=== PATIENT | female | born 1985 | race Caucasian/White ===

== ENCOUNTER 2020-06-02 10:01 | Outpatient (CLI) | payer MEDICARE, MEDICAID, SELFPAY ==
[2020-06-02 10:37] LABS: Basophils Absolute Auto 0.1 K/mm3 (0.0-0.1); Basophils Percent Auto 0.7 % (0.2-1.2); Eosinophils Absolute Auto 0.1 K/mm3 (0-0.3); Hemoglobin 14.2 g/dL (12.0-15.0); Immature Granulocyte Absolute 0.02 K/mm3 (0.00-0.031); Immature Granulocyte Percent A 0.2 % (0-0.5); Lymphocytes Absolute Auto 2.49 K/mm3 (0.9-3.2); Lymphocytes Percent Auto 28.3 % (18.3-44.2); Mean Corpuscular HGB Conc 32.3 g/dl (32-36); Mean Corpuscular Hemoglobin 27.9 pg (26-34); Mean Corpuscular Volume 86.4 fl (80-100); Mean Platelet Volume 10.7 fl (7.4-10.4); Monocytes Absolute Auto 0.7 K/mm3 (0.1-0.6); Monocytes Percent Auto 7.7 % (2.6-8.5); Neutrophils Absolute Auto 5.5 K/mm3 (1.3-6.7); Neutrophils Percent Auto 62.1 % (45.5-73.1); Platelet Count Result 274 k/mm3 (150-375); Red Blood Count 5.09 M/mm3 (4.2-5.4); Red Cell Distribution Width 12.1 % (11.5-14.5); White Blood Count 8.8 K/mm3 (4.5-10.0)
[2020-06-02 10:43] LABS: Alanine Aminotransferase 23 U/L (4-35); Albumin Level 4.6 g/dL (3.5-5.1); Alkaline Phosphatase 66 U/L (38-126); Anion Gap 9 mmol/L (8-16); Aspartate Amino Transferase 20 U/L (14-36); Bilirubin,Total 0.3 mg/dL (0.2-1.3); Blood Urea Nitrogen 13 mg/dL (7-17); Calcium 9.5 mg/dL (8.4-10.2); Carbon Dioxide 30 mmol/L (22-30); Chloride 101 mmol/L (98-107); Cholesterol 168 mg/dL (0-200); Estimated Glomerular Filt Rate > 60; Glucose 117 mg/dL (65-105); HDL Direct 44 mg/dL; Potassium 4.1 mmol/L (3.4-5.0); Sodium 140 mmol/L (137-145); Triglycerides 125 mg/dL (<150)
[2020-06-02 10:54] LABS: LDL Cholesterol Direct 92 mg/dL
== END 2020-06-02 10:02 | disposition home or self-care (01) ==
PROVIDERS: PCP Family Medicine; Visit Provider Family Medicine
DX: E03.9 Hypothyroidism, unspecified (principal); E11.9 Type 2 diabetes mellitus without complications; E78.2 Mixed hyperlipidemia; I10 Essential (primary) hypertension; R53.83 Other fatigue
CPT/HCPCS: 36415; 80053; 80061; 84443; 85025

== ENCOUNTER 2021-01-01 08:45 | Outpatient (CLI) | payer MEDICARE, SELFPAY ==
[2021-01-01 09:47] LABS: Alanine Aminotransferase 23 U/L (4-35); Albumin Level 4.5 g/dL (3.5-5.1); Alkaline Phosphatase 60 U/L (38-126); Anion Gap 5 mmol/L (8-16); Aspartate Amino Transferase 24 U/L (14-36); Bilirubin,Total 0.3 mg/dL (0.2-1.3); Blood Urea Nitrogen 17 mg/dL (7-17); Calcium 9.4 mg/dL (8.4-10.2); Carbon Dioxide 26 mmol/L (22-30); Chloride 106 mmol/L (98-107); Cholesterol 170 mg/dL (0-200); Estimated Glomerular Filt Rate > 60; Glucose 115 mg/dL (65-105); HDL Direct 53 mg/dL; Sodium 137 mmol/L (137-145); Triglycerides 107 mg/dL (<150)
[2021-01-01 09:58] LABS: LDL Cholesterol Direct 91 mg/dL
== END 2021-01-01 08:46 | disposition home or self-care (01) ==
LOC: ANHLAB 08:51
PROVIDERS: PCP Family Medicine; Visit Provider Family Medicine
DX: Z51.81 Encounter for therapeutic drug level monitoring (principal); Z79.899 Other long term (current) drug therapy; E03.9 Hypothyroidism, unspecified; E11.9 Type 2 diabetes mellitus without complications; E78.2 Mixed hyperlipidemia
CPT/HCPCS: 36415; 80053; 80061; 84443

== ENCOUNTER 2021-04-05 10:28 | Outpatient (CLI) | payer MEDICARE, SELFPAY ==
[2021-04-05 12:26] LABS: Creatinine Urine 121.7 mg/dL
[2021-04-05 12:32] LABS: MALB Creatinine Ratio 7.5 mg/g (0-30); Microalbumin Urine Random 9.1 mg/L (0-16.7)
== END 2021-04-05 10:29 | disposition home or self-care (01) ==
PROVIDERS: PCP Family Medicine; Referring Provider Internal Medicine Endocrinology, Diabetes & Metabolism; Visit Provider Family Medicine
DX: E11.65 Type 2 diabetes mellitus with hyperglycemia (principal)
CPT/HCPCS: 36415; 82043

== ENCOUNTER 2023-06-07 00:50 | Emergency (ER) | payer MEDICARE, MEDICAID, SELFPAY ==
[2023-06-07 00:56] VITALS: BP 131/89; PULSE 99; RESP 18; TEMP 37; O2SAT 99
--- NOTE | 2023-06-07 01:46 | ED.WOUNDLAC ---
HPI - Wound/Laceration General Chief Complaint: Wound/Laceration Stated Complaint: laceration to forehead after fall Time Seen by Provider: 06/07/23 01:12 Source: patient and family (Mother and father) Limitations: no limitations History of Present Illness HPI narrative: Patient is a 37-year-old female present to the emergency department complaining of a fall that occurred just prior to arrival. Patient was trying to crawl into her bed and slipped and fell hitting the right side of her head on the ground causing a cut to the right side of her head. Patient denies use of blood thinners, patient denies loss of consciousness. Patient denies neck pain, back pain, paresthesias, numbness, weakness, vision changes, sore throat, loose or chipped teeth, hearing changes. Patient denies any nausea or vomiting or recent illness. Patient notes her last tetanus shot is uncertain but thinks that it might be more than 10 years ago. Patient has a baseline wheelchair dependent. Patient denies any pain anywhere aside from a slight amount of discomfort over where she cut the right side of her head. Family put a gauze and headband over the wound and brought her in for further evaluation. Patient is at her baseline mentation. Related Data Home Medications Medication Instructions Recorded Confirmed dapagliflozin propanediol 10 mg 10 mg PO DAILY 12/25/20 12/18/22 tablet (Farxiga) aspirin 325 mg tablet 81 mg PO DAILY 12/18/22 12/18/22 Allergies Allergy/AdvReac Type Severity Reaction Status Date / Time No Known Allergies Allergy Verified 06/07/23 00:56 Review of Systems Review of Systems: A 10 system review of systems was completed on the patient and is negative except for what is stated in the HPI. Nursing and ancillary documentation was reviewed. [facility] Past Medical History Medical History Cerebral palsy Diabetes mellitus Encounter for immunization Essential hypertension Family History Family History Mother Hypertension Family history of elevated blood lipids Family history of diabetes mellitus in first degree relative Social History Social History Smoking status: Never smoker Second hand tobacco smoke exposure: No Alcohol intake: never Substance use: never Substance use type: does not use Lack of Transportation: No Lack of Food: Never True Current Housing: I Have Housing Concerned About Future Housing: No Difficulty Paying Gas/Electric Bills: No Difficulty Paying for Meds: No Currently Unemployed: No Education: Associate Degree Difficulty w/ Childcare or Family Care: No Living arrangements: with family Gender identity (if verbalized by the patient): Female Spiritual care concerns: No Agree to blood products: Yes Comments At time of signature, I have reviewed and agree with nursing past medical, surgical, social and family history unless otherwise noted. Please see the nursing chart for further information. There is no relevant family history pertinent to the presenting complaint. Exam Narrative: CONST: No acute distress. Well nourished. HENMT: Head is normocephalic. 2 cm linear laceration to the right frontoparietal region with scant oozing blood, depth is approximately 0.25 cm, no foreign bodies, no surrounding erythema, no palpable skull deformities, no galea involvement, no muscle involvement, no exposed fatty tissue, no necrotic tissue. Moist mucous membranes. No posterior oropharynx erythema. No hemotympanum. EYES: No conjunctival icterus, injection, or pallor. PERRL. Extraocular motions intact. NECK: No meningeal signs. No midline vertebral tenderness palpation or step-offs. RESP: Able to speak in full sentences. Normal respiratory effort. CTAB. CARDIO: Regular rate. Regular rhythm. 2+ DP and radial pulses
[2023-06-07] MEDS: TETANUS,DIPHTHERIA,AC PERTUSSIS ADULT (0.5 ML) BOOSTRIX IM (01:53)
[2023-06-07] MEDS: ACETAMINOPHEN 500 MG TABLET 1000 MG PO (02:06)
== END 2023-06-07 02:18 | disposition home or self-care (01) ==
PROVIDERS: Emergency Provider Student in an Organized Health Care Education/Training Program; PCP Family Medicine
DX: S01.01XA Laceration without foreign body of scalp, initial encounter (principal); E11.9 Type 2 diabetes mellitus without complications; I10 Essential (primary) hypertension; G80.9 Cerebral palsy, unspecified; Z23 Encounter for immunization; W06.XXXA Fall from bed, initial encounter
CPT/HCPCS: 12001; 90471; 90715; 99283; A9270

== ENCOUNTER 2024-03-19 09:28 | Outpatient (CLI) | payer MEDICARE, MEDICAID, SELFPAY ==
[2024-03-19 09:59] LABS: Basophils Absolute Auto 0.1 K/mm3 (0.0-0.1); Basophils Percent Auto 0.6 % (0.2-1.2); Eosinophils Absolute Auto 0.1 K/mm3 (0-0.3); Eosinophils Percent Auto 1.2 % (0-4.4); Hematocrit 45.5 % (37.0-47.0); Hemoglobin 14.4 g/dL (12.0-15.0); Immature Granulocyte Absolute 0.02 K/mm3 (0.00-0.031); Immature Granulocyte Percent A 0.2 % (0-0.5); Immature Platelet Fraction Pct 4.6 % (0.9-11.2); Lymphocytes Absolute Auto 2.27 K/mm3 (0.9-3.2); Lymphocytes Percent Auto 26.3 % (18.3-44.2); Mean Corpuscular HGB Conc 31.6 g/dl (32-36); Mean Corpuscular Hemoglobin 27.9 pg (26-34); Mean Corpuscular Volume 88.2 fl (80-100); Mean Platelet Volume 10.7 fl (7.4-10.4); Monocytes Absolute Auto 0.7 K/mm3 (0.1-0.6); Monocytes Percent Auto 7.5 % (2.6-8.5); Neutrophils Absolute Auto 5.5 K/mm3 (1.3-6.7); Neutrophils Percent Auto 64.2 % (45.5-73.1); Platelet Count Result 223 k/mm3 (150-375); Red Blood Count 5.16 M/mm3 (4.2-5.4); Red Cell Distribution Width 12.9 % (11.5-14.5); White Blood Count 8.6 K/mm3 (4.5-10.0)
[2024-03-19 10:16] LABS: Alanine Aminotransferase 34 U/L (6-35); Albumin Level 4.7 g/dL (3.5-5.1); Alkaline Phosphatase 83 U/L (38-126); Anion Gap 15 mmol/L (4-12); Aspartate Amino Transferase 29 U/L (14-36); Bilirubin,Total 0.5 mg/dL (0.2-1.3); Blood Urea Nitrogen 13 mg/dL (7-17); Calcium 9.5 mg/dL (8.4-10.2); Carbon Dioxide 21 mmol/L (22-30); Chloride 101 mmol/L (98-107); Cholesterol 162 mg/dL (0-200); Estimated Glomerular Filt Rate > 60; Glucose 134 mg/dL (65-110); HDL Direct 52 mg/dL; Potassium 3.9 mmol/L (3.4-5.0); Sodium 137 mmol/L (137-145); Triglycerides 119 mg/dL (<150)
[2024-03-19 10:27] LABS: LDL Cholesterol Direct 84 mg/dL
[2024-03-19 15:22] LABS: Free T4 Free Thyroxine Reflex 0.89 ng/dL (0.78-2.19)
[2024-03-19 19:48] LABS: Total Triiodothyronine (T3) 1.48 NG/ML (0.97-1.69)
== END 2024-03-19 09:29 | disposition home or self-care (01) ==
PROVIDERS: PCP Family Medicine; Visit Provider Family Medicine
DX: E11.9 Type 2 diabetes mellitus without complications (principal); E78.2 Mixed hyperlipidemia; R53.83 Other fatigue; I10 Essential (primary) hypertension
CPT/HCPCS: 36415; 80053; 80061; 84439; 84443; 84480; 85025; 85055

== ENCOUNTER 2024-08-09 12:30 | Outpatient (RCR) | payer MEDICARE, MEDICAID, SELFPAY ==
--- NOTE | 2024-05-24 16:37 | OPREHPOC ---
Outpatient Therapy Plan of Care This is a Multidisciplinary Plan of Care that may contain components documented by all disciplines (PT, OT, and ST.) PT Problem 1 PT Problem #1 Knowledge Deficit PT Goal 1 Goal / Goal Update *indep with HEP Target Visit 10 PT Problem 2 PT Problem #2 Impaired Strength PT Goal 1 Goal / Goal Update increase srength of hips and knees to improve gait and mobility skills: 1* pt perform 20 reps of supine SLR and hip abduction motions 2* in sitting: pt perform R and L knee extension to (-10') x 20 reps Target Visit 10 PT Problem 3 PT Problem #3 Impaired Gait PT Goal 1 Goal / Goal Update 1*pt ambulate with forearm crutch 100' with CGA for safety 2* pt step length pass other foot 3* pt hold trunk in neutral with walking/ no lateral motion Target Visit 10
--- NOTE | 2024-05-24 16:37 | PTOPEVAL1 ---
Assessment and note entered by Callie Olmos, PT Evaluation Information Assessment Status Evaluation Other ICD-10 Condition Codes ( cerebral palsy G 80.9 PT) Subjective Information have not had PT for over 10 years; Activity: use motorized w/c for mobility; live at home with parents; use cane and walk with parents 12'; no falls in the past 6 months; parents assist her with getting out of bed, walking to bathroom; showering does stretching exercises at home; Goal: get legs stronger Reported Pain Level Pain Score 0: Self Report Assessment PT Clinical Summary Karolina has the diagnosis of cerebral palsy. She lives at home with her parents, uses the motorized w/c for mobility and parents assist her with mobility and self care. She has bilateral AFO and R wrist immobilizer. She has not had any falls. At home, has been performing some stretching but not any strengthening exercises. With the evaluation: she has decreased strength of both legs, with decreased extension ROM of hips and knees; gait with the forearm crutch 55' with assist of one and poor gait pattern. Skilled PT services are indicated to increase bilateral hip and knee strength and flexibility, improve transfer and gait skills, with education for HEP and gait pattern/ balance. Plan of Care Interventions Gait Training,Manual Therapy,Neuro Re-education, Patient/Caregiver Education,Therapeutic Activities, Therapeutic Exercise PT Services Indicated Yes Treatment Frequency and 2x/wk for 10 visits Duration These treatments will address the objective and functional deficits as defined above. The patient will be advanced safely and appropriately in order for the patient to progress towards his/her prior level of function. Additional exercises will be introduced and as well as a comprehensive home exercise program upon discharge, if needed, ?to ensure carryover of functional gains achieved in the clinic. This treatment plan has been reviewed and agreement upon by the patient.
--- NOTE | 2024-06-24 11:52 | OTOPEVAL1 ---
Assessment and note entered by He Bower, BIBI/Isidro, CHT Evaluation Information Assessment Status Evaluation Diagnosis Cerebral palsy Subjective Information Patient dx CP. Right hand/upper extremity has decreased joint motion and strength. The patient verbalizes concerns about her right hand in particular. She has an off the shelf brace to try to hold her wrist and fingers straight, however it does not work as intended as it is just a wrist immobilizer. She is interested in a custom brace to hold her fingers in a more neutral position. At rest her wrist is in slight flexion and the finger PIP joints are hyperextended. She works on stretching these daily. Assessment OT Clinical Summary Patient referred to OT with dx of CP. She is interested in a custom hand orthosis for improved positioning of her wrist, hand, fingers, and thumb . Today she was measured for a custom Benik orthosis to support these structures. This type of orthosis was chosen over a thermoplastic orthosis we make in the clinic for comfort and she will be wearing this for years. Plan to have patient follow up once the splint gets shipped to the clinic for molding and fitting of the splint. Thank you for this referral. Plan of Care Interventions Therapeutic Exercise,Check Out for Orthotic/Pr OT Services Indicated Yes Treatment Frequency and 0-1x/week for 3 visits Duration These treatments will address the objective and functional deficits as defined above. The patient will be advanced safely and appropriately in order for the patient to progress towards his/her prior level of function. Additional exercises will be introduced and as well as a comprehensive home exercise program upon discharge, if needed, ?to ensure carryover of functional gains achieved in the clinic. This treatment plan has been reviewed and agreement upon by the patient.
--- NOTE | 2024-06-24 14:24 | OPREHPOC ---
Outpatient Therapy Plan of Care This is a Multidisciplinary Plan of Care that may contain components documented by all disciplines (PT, OT, and ST.) PT Problem 1 PT Problem #1 Knowledge Deficit PT Goal 1 Goal / Goal Update *indep with HEP Target Visit 10 Progress Met PT Goal 2 Goal / Goal Update 06-24-24 progress goal met continue to progress HEP and education Target Visit 18 PT Problem 2 PT Problem #2 Impaired Strength PT Goal 1 Goal / Goal Update increase srength of hips and knees to improve gait and mobility skills: 1* pt perform 20 reps of supine SLR and hip abduction motions 2* in sitting: pt perform R and L knee extension to (-10') x 20 reps Target Visit 10 Progress Partially Met PT Goal 2 Goal / Goal Update 06-24-24 progress goals partially met: #1 for R LE and #2 met for reps but not ROM NEW GOALS: 1* pt stand with one forearm crutch, trunk extension ~ 20' flexion x 2 minutes 2* supine R LE SLR x 20 reps 3* sitting R LE knee extension x 20 reps to (-30') 4* supine L LE SLR x 30 reps 5* sitting L knee extension x 20 reps to (-20') Target Visit 18 PT Problem 3 PT Problem #3 Impaired Gait PT Goal 1 Goal / Goal Update 1*pt ambulate with forearm crutch 100' with CGA for safety 2* pt step length pass other foot 3* pt hold trunk in neutral with walking/ no lateral motion Target Visit 10 Progress Not Met PT Goal 2 Goal / Goal Update 06-24-24 progress goals not met continue towards Target Visit 18 OT Problem 1 OT Problem #1 Knowledge Deficit OT Goal 1 Goal / Goal Update 1. Patient/caregiver to be indep. with don/doffing orthosis. Target Visit 3
--- NOTE | 2024-06-24 14:24 | PTOPPROG ---
Assessment and note entered by Callie Olmos, PT Progress Report Assessment Status Progress Other ICD-10 Condition Codes ( cerebral palsy G 80.9 PT) Subjective Information since coming for therapy- easier to get in/out bed dad still has to help her at home, due to higher mattress, compared to the mat here; at home have been walking with parents from room/room; Assessment PT Clinical Summary Karolina has received 10 PT sessions. Compared to the initial evaluation: increase in LE strength, transfer and gait skills. The goals were partially met. Education to pt and family for HEP and transfers. Continue PT services. Plan of Care Interventions Gait Training,Manual Therapy,Neuro Re-education, Patient/Caregiver Education,Therapeutic Activities, Therapeutic Exercise PT Services Indicated Yes Treatment Frequency and 2x/wk for 8 visits Duration These treatments will address the objective and functional deficits as defined above. The patient will be advanced safely and appropriately in order for the patient to progress towards his/her prior level of function. Additional exercises will be introduced and as well as a comprehensive home exercise program upon discharge, if needed, ?to ensure carryover of functional gains achieved in the clinic. This treatment plan has been reviewed and agreement upon by the patient.
--- NOTE | 2024-07-28 13:16 | PTOPDC ---
Assessment and note entered by Callie Olmos, PT DISCHARGE REPORT Assessment Status Discharge Other ICD-10 Condition Codes ( cerebral palsy G 80.9 PT) Subjective Information since coming for therapy, walking is better, legs and stomach are stronger; have been doing the exercises at home; Reported Pain Level Pain Score 0: Self Report Assessment PT Clinical Summary Karolina has received a total of 18 PT sessions. Compared to the last reevaluation: increased standing time- static with one forearm crutch for 2 minutes and 39 seconds, with trunk flexion ~ 20' and knee flexion ~ 30'; increase LE strength with supine and sitting LE exercises, due to tone, she has trunk motion to assist with LE movements; in sitting, she is able to maintain good sitting position, without UE support; gait distance improved from 75' to 100' with one forearm crutch, bilateral AFO and SBA for safety; education completed for HEP with pt and family. The goals were achieved, except gait with trunk neutral. Discharge PT services. She is to continue with HEP and walking as tolerated. Plan of Care PT Services Indicated No
--- NOTE | 2024-08-09 13:39 | OTOPPROG ---
Assessment and note entered by BIBI Fonseca/Isidro, IVYT OT Progress Update 08/09/24 Assessment Status Progress Diagnosis Cerebral palsy Subjective Information Patient presents today for Benik brace fitting. 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 Benik brace is covered in a soft neoprene. She and her father liked the fit, cascade of the fingers, etc. They are able to don and doff independently. Assessment OT Clinical Summary Patient referred to OT with dx of CP. She is interested in a custom hand orthosis for improved positioning of her wrist, hand, fingers, and thumb. Today she was fitted for a custom Benik resting hand splint that supports the wrist in neutral, the thumb in abduction, and the fingers in extension. Extra care was taken to limit PIP hyperextension, so the fingers have a slight bend at all the joints, but overall are supported in a comfortable extended position. She is able to doff the brace herself. Requires the assist to don, which her dad is independent. Plan to follow up in 1 month to assess need for any adjustments. Plan of Care Interventions Therapeutic Exercise,Check Out for Orthotic/ Prosthetic OT Services Indicated Yes Treatment Frequency and Follow up in 1 month Duration These treatments will address the objective and functional deficits as defined above. The patient will be advanced safely and appropriately in order for the patient to progress towards his/her prior level of function. Additional exercises will be introduced and as well as a comprehensive home exercise program upon discharge, if needed, ?to ensure carryover of functional gains achieved in the clinic. This treatment plan has been reviewed and agreement upon by the patient.
--- NOTE | 2024-08-23 14:28 | PCOTNOTE ---
This treatment is being continued on visit number [id number]. Please see documentation on both accounts to view progress. Completed interventions, outcomes, and problems have been marked as Inactive to facilitate the copying of the Care plan routine for recurring accounts.
== END 2024-08-22 23:59 | disposition home or self-care (01) ==
LOC: ANHOT 12:30
PROVIDERS: PCP Family Medicine; Visit Provider Family Medicine
DX: I89.0 Lymphedema, not elsewhere classified (principal); G80.9 Cerebral palsy, unspecified
CPT/HCPCS: 97110; 97112; 97116; 97140; 97162; 97165; 97530; 97763

== ENCOUNTER 2024-09-10 07:27 | Outpatient (RCR) | payer MEDICARE, MEDICAID, SELFPAY ==
--- NOTE | 2024-08-23 14:28 | PCOTNOTE ---
The treatment documented on this account is a continuation of the treatment documented on visit number [id number]. Please see documentation on both accounts to view progress. The Plan of Care has been transitioned and updated within the new V#. I have addressed and agree with the discipline specific Problems, Interventions, and Goals for the current certification period. Completed interventions, outcomes, and problems have been marked as Inactive to facilitate the copying of the Care plan routine for recurring accounts.
--- NOTE | 2024-09-10 13:18 | OTOPDC ---
Assessment and note entered by He Bower, OTR/L, CHT OT D/C Summary 09/10/24 Assessment Status Discharge Diagnosis Cerebral palsy Subjective Information Patient presents today for assessment of her Benik brace after a month of wearing. Her father present with her today. They report they like the fit and it's doing exactly what it's intended to do. They are having no issues with don/doffing or cleaning the brace. Assessment OT Clinical Summary Patient referred to OT with dx of CP. A custom resting hand splint was fitted to the patient a month ago and she returns today to reassess the fit. Made some adjustments to the brace and advised to not strap down so tightly. Reviewed ROM HEP. Plan to D/C today with patient and patient's dad independent with all materials. Plan of Care OT Services Indicated No
== END 2024-09-10 14:44 | disposition home or self-care (01) ==
LOC: ANHOT 07:27
PROVIDERS: PCP Family Medicine; Visit Provider Family Medicine
DX: I89.0 Lymphedema, not elsewhere classified (principal); G80.9 Cerebral palsy, unspecified
CPT/HCPCS: 97110; 97763

== ENCOUNTER 2024-09-30 07:46 | Outpatient (CLI) | payer MEDICARE, MEDICAID, SELFPAY ==
--- OUTSIDE RECORDS SUMMARY | 2024-09-30 07:48 | XMS_ITS | Referral Summary ---
Author Organization [facility] [address] [place] [id number] Care Team Providers Care Drafter Apprentice Name Role Phone Carina Avendano MD Primary Care Provider [phone] Carina Avendano MD Unavailable [phone] Allergies No known active allergies Medications hydroCHLOROthia zide (MICROZIDE) 12.5 mg capsule 10/27/2018 Act justus sertraline (ZOLOFT) 50 mg tablet Take 1 tablet (50 mg total) by mouth daily 03/25/2021 Active aspirin 325 mg tablet Take 1 tablet (325 mg total) by mouth daily Active dapaglifloz propaned-metfor min 10-1,000 mg tablet, IR & ER, biphasic 24hr Take 10-1,000 mg by mouth daily 90 tablet 3 11/11/2023 Active atorvastatin (LIPITOR) 10 mg tablet Take 1 tablet (10 mg total) by mouth daily 90 tablet 3 11/11/2023 Active OneTouch Verio test strips stripIndication s:Type 2 diabetes mellitus with hyperglycemia, without long-term current use of insulin (HCC) USE TO TEST GLUCOSE FOUR TIMES A DAY 300 strip 4 11/24/2023 Active metFORMIN XR (GLUCOPHAGE XR) 500 mg 24 hr tabletIndicatio ns:Type 2 diabetes mellitus with hyperglycemia, without long-term current use of insulin (HCC) TAKE 1 TABLET (500 MG TOTAL) BY MOUTH DAILY. 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 Difficulties spectacle wear non suitability contact lens wear. Optic disc pallor right eye; tilted optic discs both eyes. Possible ICL implantation candidate. Hypertension associated with diabetes 09/21/2020 Assessment & Plan (05/29/2023 1:46 PM CDT): Chronic, well-controlled Update microalbumin and GFR Assessment & Plan (10/29/2022 12:05 PM CDT): Chronic problem, controlled on current HCTZ 12.5mg daily. No changes at this time. Assessment & Plan (03/26/2022 1:31 PM CDT): Chronic, well controlled Continue current meds Check GFR, MA Assessment & Plan (03/27/2021 12:12 PM CDT): Adequately controlled Check microalbumin Assessment & Plan (09/21/2020 1:38 PM SCHOOL FUNDRAISING DIRECTOR): Goal blood pressure is less than 140/85 Low salt diet was discussed andd recommended The importance of daily aerobic exercise was also emphasized. Continue current meds, Check microalbumin Alternating exotropia with other noncomitancies 10/21/2019 Assessment & Plan (10/21/2019 10:54 AM CDT): Patient wanted to be seen since recently diagnosed with Diabetes. Discussed implant surgery with parent. 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 Continue statin therapy with atorvastatin 10 mg Assessment & Plan (11/11/2023 2:19 PM CDT): Chronic , stable Update LP Continue atorvastatin Assessment & Plan (05/29/2023 1:45 PM CDT): Chronic, well-controlled Continue atorvastatin Assessment & Plan (10/29/2022 12:11 PM CDT): Chronic problem, controlled on current Atorvastatin 10mg. Last lipid panel: 09/25/21 LDL=88, TG=87. Will update lipid panel today. Verified phone #/address to contact re: results. Assessment & Plan (03/26/2022 1:31 PM CDT): Chronic, well controlled Low fat Low cholesterol diet Exercise Continue statin therapy with Atorvastatin Assessment & Plan (09/25/2021 11:57 AM SCHOOL FUNDRAISING DIRECTOR): Goal of treatment , LDL cholesterol less than 100 ( less than 70 in patients with history of heart attacks and / or strokes ) NonHDL cholesterol ( total cholesterol minus HDL cholesterol ) goal less than 130 ( less than 100 in patients with history of heart attacks and / or strokes ) Low cholesterol, low fat diet was discussed and advised, as well as daily exercise Continue statin therapy with Atovastastin Check lipid profile Assessment & Plan (03/27/2021 12:12 PM CDT): Goal of treatment , LDL cholesterol less than 100 ( less than 70 in patients with history of heart attacks and / or strokes ) NonHDL cholesterol ( total cholesterol minus HDL cholesterol ) goal less than 130 ( less than 100 in patients with history of heart attacks and / or strokes ) Low cholesterol, low fat diet was discussed and advised. Daily exercise Continue statin therapy with with atorvastatin Assessment & Plan (09/21/2020 1:37 PM SCHOOL FUNDRAISING DIRECTOR): Goal of treatment , LDL cholesterol less than 100 ( less than 70 in patients with history of heart attacks and / or strokes ) NonHDL cholesterol ( total cholesterol minus HDL cholesterol ) goal less than 130 ( less than 100 in patients with history of heart attacks and / or strokes ) Low cholesterol, low fat diet was discussed and advised. Daily exercise On statin therapy with Lipitor Lipids checked today Assessment & Plan (02/24/2020 12:52 PM CDT): Goal of treatment , LDL cholesterol less than 100 ( less than 70 in patients with history of heart attacks and / or strokes ) NonHDL cholesterol ( total cholesterol minus HDL cholesterol ) goal less than 130 ( less than 100 in patients with history of heart attacks and / or strokes ) Low cholesterol, low fat diet was discussed and advised. Daily exercise On statin therapy with Lipitor Assessment & Plan (08/26/2019 12:05 PM SCHOOL FUNDRAISING DIRECTOR): Tolerating atorvastatin. Continue. Assessment & Plan (04/27/2019 2:40 PM CDT): Due to the high risk of of heart attacks and strokes in patients with diabetes, it is stronglyce recommended to aim for LDL-cholesterol ( bad cholesterol ) of less than 100 ( or less than 70 if you have a history of stroke or heart disease ) and a non HDL cholesterol of less than 130 . Since statin medications have shown to decrease the risk of heart disease and strokes in patients with diabetes , its use is strongly recommended. Start Lipitor 10 mg daily Type 2 diabetes mellitus wit h hyperglycemia, without long-term current use of insulin 12/31/2018 Assessment & Plan (05/21/2024 4:01 PM CDT): Chronic, stable. Continue current regimen including dapagliflozin/metformin Assessment & Plan (11/11/2023 2:17 PM CDT): Chronic, stable Diet and exercise Contine Duaneuo Assessment & Plan (05/29/2023 1:43 PM CDT): Hba1c was Lab Results Component Value Date HGBA1C 6.5 05/29/2023 today, indicating poor DM control Goal Hba1c and blood glucose explained Diet and exercise were advised Prevention and treatment of hyypoglcyemia were discussed with the patient Blood glucose monitoring : 1 day Adjustment to medications: Stop metformin and farxiga Start Xigduo 05/1000 mg once a day Assessment & Plan (10/29/2022 12:12 PM CDT): Chronic problem, well controlled on current regimen. No changes: Farxiga 10mg daily Metformin 500mg twice daily Has f/u DM eye appt 01/24/[address] Whitlock at [facility]. Assessment & Plan (03/26/2022 1:32 PM CDT): Hba1c was Lab Results Component Value Date HGBA1C 6.1 03/26/2022 today, indicating adequate DM control Goal Hba1c and blood glucose explained Diet and exercise were advised Prevention and treatment of hyypoglcyemia were discussed with the patient Blood glucose monitoring : 1-2 x day ( pt prefers to do it ) Adjustment to medications: continue curren t Assessment & Plan (09/25/2021 11:58 AM SCHOOL FUNDRAISING DIRECTOR): Hba1c was Lab Results Component Value Date HGBA1C 6.0 09/25/2021 today, indicating adequate DM control Goal Hba1c and blood glucose explained Diet and exercise were advised Prevention and treatment of hyypoglcyemia were discussed with the patient Blood glucose monitoring : 1 x day Adjustment to medications: Continue Farxiga and Metformin Assessment & Plan (03/27/2021 12:12 PM CDT): Hba1c was Lab Results Component Value Date HGBA1C 5.7 03/27/2021 today, indicating adequate DM control Goals blood sugars of 120-160 and Hba1c under 7 % was explained. 1800 calorie, consistent carb diet recommended, no more than 3-45 grams of carbs per meal, avoiding concentrated sweet drinks and rapid absorption carbs. 25-45 min daily aerobic and resistance exercise recommended Blood glucose monitoring with fingers sticks. Continue with Farxiga and metformin Assessment & Plan (09/21/2020 1:38 PM SCHOOL FUNDRAISING DIRECTOR): Hba1c was Lab Results Component Value Date HGBA1C 5.5 09/21/2020 today, indicating adequate DM control Goals blood sugars of 120-160 and Hba1c under 7 % was explained. 1800 calorie, consistent carb diet recommended, no more than 3-45 grams of carbs per meal, avoiding concentrated sweet drinks and rapid absorption carbs. 25-45 min daily aerobic and resistance exercise recommended Blood glucose monitoring with fingers sticks. Continue Farxiga, Metformin Assessment & Plan (02/24/2020 12:51 PM CDT): Hba1c was Lab Results Component Value Date HGBA1C 5.8 02/24/2020 today, indicating adequate DM control 1800 calorie, consistent carb diet recommended, no more than 3-45 grams of carbs per meal, avoiding concentrated sweet drinks and rapid absorption carbs. 25-45 min daily aerobic and resistance exercise recommended Prevention and treatment of hyypoglcyemia discussed. Blood glucose monitoring with fingers sticks.... Medications: Continue current, Invokana and Metformin Assessment & Plan (08/26/2019 12:05 PM SCHOOL FUNDRAISING DIRECTOR): A1c 5.4 with no hypoglycemia. Most BG in 110-120 range. Doing well monitoring diet. Continue metformin and Invokana at current dose. Advised to schedule dilated eye exam. Assessment & Plan (04/27/2019 2:42 PM CDT): Hba1c was Lab Results Component Value Date HGBA1C 5.6 % 04/27/2019 today, indicating adequate DM control 1800 calorie, consistent carb diet recommended, no more than 3-45 grams of carbs per meal, avoiding concentrated sweet drinks and rapid absorption carbs. 25-45 min daily aerobic and resistance exercise recommended Prevention and treatment of hyypoglcyemia discussed. Blood glucose monitoring with fingers sticks once a day, alternating times. No need to check on the weekends Medications: Continue Invokana and metformin Assessment & Plan (02/25/2019 4:32 PM CDT): BG on log are improved and A1c would likely be in mid 7 range. Making good effort to manage portions. Continue with metformin 500 bid and Invokana 100. BG goals reviewed. Advised to have c peptide and AGUSTÍN done as ordered in December. Future plan will be determined by results. Follow up in April as scheduled. 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 Your goal sugars are in the 90-130 range Exercise recommendations: It is recommended that you do daily aerobic ( walking, riding a bike, swimming ) and resistance exercises ( light weight lifting, resistance band stretching ) for at least 30 minutes , most days of the week. If you can not walk, chair exercises for 10-15 min a day would help tremendously. As little as 15-20 minutes exercise , in one or two sessions a day, is still very helpful to improve your diabetes control . Diet recommendations: Eat small portion meals, trying not to consume more than 1800 calories a day . Try to eat not more than than 2 servings of carbs ( starches ) wiith your meals. Avoid soft drinks, including regular sodas , fruit juices and sweetened tea. Drink water instead. Eat plenty of green and leafy vegetables, including salads. Medications: Take your medications regularly. Setting phone alarms can help . Keep your medication on the kitchen dinner table, by the bedside table or by the sink where they are visible to you. If you are taking insulin : the insulin that you are currently using does not need to be refrigerated. Keep it where you can see it . Monitor your sugar levels with finger sticks regularly and keep a log sheet or book. Bring your sugar meter and /or a log book or log sheet to every office visit. Increase Metfomin to 1000 mg twice a day with meals Start Ozempic, 0.25 mg weekly x 4 week Then increase to 0.5 mg weekly If you have severe nausea, vomiting , abdominal pain and/or diarrhea, stop the medication and call the office. Start Invokana 100 mg daily Start Tresiba, 8 units at bedtime. After a week, increase by 2 units every 3 days until morning sugars are persistently under 150 Fax sugar logs weekly Social History Tobacco Use Types Packs/Day Years Used Date Smoking Tobacco: Never Smokeless Tobacco: Never Alcohol Use Standard Drinks/Week Comments Not Currently 0 (1 standard drink = 0.6 oz pur e alcohol) AUDIT-C Answer Date Recorded Q1: How often do you have a drink containing alcohol? Never 05/21/2024 Q2: How many drinks containi ng alcohol do you have on a typical day when you are drinking? Patient does not drink Q3: How often do you have si x or more drinks on one occasion? Never 05/21/2024 PHQ-2 Answer Date Recorded PHQ-2 Total Score (If total score is 3 or more points, staff should administer the PHQ-9) 0 05/21/2024 Personal Safety Answer Date Recorded Getting School Help Needed Not on file 08/22 Comments Unknown Sex and Gender Information Value Date Recorded Sex Assigned at Not on file Legal Sex Female 7:50 PM SCHOOL FUNDRAISING DIRECTOR Gender Identity Not on file Sexual Orientation Not on file Last Filed Vital Signs Vital Sign Reading Time Taken Comments Blood Pressure 116/64 05/21/2024 1:22 PM CDT Pulse 80 05/21/2024 1:22 PM CDT Temperature - - Respiratory Rate 20 05/21/2024 1:22 PM CDT Oxygen Saturation - - Inhaled Oxygen Concentration - - Weight 61.2 kg (135 lb) 05/21/2024 1:22 PM CDT Height 152.4 cm (5') 05/21/2024 1:22 PM CDT Body Mass Index 26.37 05/21/2024 1:22 PM CDT Plan of Treatment Not on file Procedures Procedure Name Priority Date/Time Associated Diagnosis Comments POCT HEMOGLOBIN A1C Routine 05/21/2024 1 :27 PM CDT Type 2 diabetes mellitus with hyperglycemia, without long-term current use of insulin (HCC) LIPID PANEL Routine 11/11/2023 2:26 PM CDT Hyperlipidemia associated with type 2 diabetes mellitus (HCC) EGFR Routine 05/29/2023 2:02 PM CDT Hypertension associated with diabetes (HCC) ALBUMIN CREATININE RATIO, URINE Routine 05/29/2023 2:02 PM CDT Hypertension associated with diabetes (HCC) from Last 3 Months or Most Recently Relevant to Health Maintenance Results * (ABNORMAL) POCT hemoglobin A1c (05/21/2024 1:27 PM CDT) Hemoglobin A1C, POC 6.3 4.0 - 5.6 % Comment:none Capillary blood 05/21/2024 1 :27 PM CDT Radha Valencia MD POINT OF CARE TEST ORDERABLES Fi nal Result * (ABNORMAL) Lipid panel (11/11/2023 2:26 PM CDT) Cholesterol 154 30 - 199 mg/dL Comment: Interpretive Data Ages < or = 19 years Acceptable: <170 mg/dL Borderline high: 170-199 mg/dL High: >or= 200 mg/dL Ages > or = 20 years Desirable: <200 mg/dL Borderline high: 200-239 mg/dL High: >or= 240 mg/dL Literature References: 1. Expert Panel on Integrated Guidelines for Cardiovascular Health and Risk Reduction in Children and Adolescents. Pediatrics 2011;128:S213 2. NCEP Expert Panel. Circulation 2004;110:227 Current Interpretive Data was last revised on 2018. Triglycerides 237(H) <=149 mg/dL MODE [facility]AYNES Comment: Interpretive Data Ages < or = 9 years Acceptable: <75 mg/dL Borderline high: 75-99 mg/dL High: >or= 100 mg/dL Ages 10 to 20 years Acceptable: <90 mg/dL Borderline high: 90-129 mg/dL High: >or= 130 mg/dL Ages > or = 20 years Desirable: <150 mg/dL Borderline high: 150-199 mg/dL High: 200-499 mg/dL Very high: >or= 499 mg/dL Literature References: 1. Expert Panel on Integrated Guidelines for Cardiovascular Health and Risk Reduction in Children and Adolescents. Pediatrics 2011;128:S213 2. NCEP Expert Panel. Circulation 2004;110:227 Current Interpretive Data was last revised on 2018. HDL 43 >=40 mg/dL MODE HAYNES Comment: Interpretive Data Ages < or = 19 years Acceptable: >45 mg/dL Borderline low: 40-45 mg/dL Low: <40 mg/dL Ages > or = 20 years Desirable: >or= 60 mg/dL Low: <40 mg/dL Literature References: 1. Expert Panel on Integrated Guidelines for Cardiovascular Health and Risk Reduction in Children and Adolescents. Pediatrics 2011;128:S213 2. NCEP Expert Panel. Circulation 2004;110:227 Current Interpretive Data was last revised on 2018. LDL, calculated 64 <=129 mg/dL MODE HAYNES Comment: Interpretive Data Ages < or = 19 years Acceptable: <110 mg/dL Borderline high: 110-129 mg/dL High: >or= 130 mg/dL Ages > or = 20 years Optimal: <100 mg/dL Near optimal: 100-129 mg/dL Borderline high: 130-159 mg/dL High: >160 mg/dL Literature References: 1. Expert Panel on Integrated Guidelines for Cardiovascular Health and Risk Reduction in Children and Adolescents. Pediatrics 2011;128:S213 2. NCEP Expert Panel. Circulation 2004;110:227 Current Interpretive Data was last revised on 2018. Non-HDL Cholesterol 111 mg/dL MODE HAYNES Comment: Interpretive Data Ages < or = 19 years Acceptable: <120 mg/dL Borderline high: 120-144 mg/dL High: >145 mg/dL Ages > or = 20 years When triglycerides are >200 mg/dL, Non-HDL cholesterol is a secondary target of therapy with treatment goals that are 30 mg/dL greater than the LDL cholesterol target. Literature References: 1. Expert Panel on Integrated Guidelines for Cardiovascular Health and Risk Reduction in Children and Adolescents. Pediatrics 2011;128:S213 2. NCEP Expert Panel. Circulation 2003;110:227 Current Interpretive Data was last revised on 2018. Chol/HDL ratio 4 MODE HAYNES Blood 11/11/2023 2:26 PM CDT 11/11/2023 7:50 PM CDT us Radha Valencia MD LAB BLOOD ORDERABLES Final Resul t MODE HAYNES [id number] [address] Department of Laboratories [place], [place] [id number] * eGFR (05/29/2023 2:02 PM CDT) eGFR 125 mL/min/1. 73 m2 Comment: Interpretive Data Reference Interval Normal >/= 90 mL/min/1.73m2 Mildly decreased* 60 - 89 mL/min/1.73m2 Mildly to moderately decreased 45 - 59 mL/min/1.73m2 Moderately to severely decreased 30 - 44 mL/min/1.73m2 Severely decreased 15 - 29 mL/min/1.73m2 Kidney Failure < 15 mL/min/1.73m2 *Relative to young adult level Estimated glomerular filtration rate is determined by the 2020 CKD-EPI equation recommended by the National Kidney Foundation (A Unifying Approach to GFR Estimation: Recommendations of the NKF-ASK Task Force on Reassessing the Inclusion of Race in Diagnosing Kidney Disease, JASN 202). The CKD-EPI equation should not be used for patients with unstable renal function and has not been validated in children and those over 70. Current interpretive data was last reviewed 2021. Blood 05/29/2023 2:02 PM CDT 05/29/2023 8:36 PM CDT us Radha Valencia MD LAB BLOOD ORDERABLES Final Resul t Performing Organization Address [facility] Co de Phone Number MODE HAYNES [phone] [address] [place] [employer] [place] [address] * Albumin Creatinine Ratio, Urine (05/29/2023 2:02 PM CDT) Albumin Ur <12.0 mg/L Comment: Interpretive Data No reference range established. Current interpretive data was last revised 2018. Creatinine Ur 55.9 mg/dL MODE HAYNES Comment: Interpretive Data No reference range established. Current interpretive data was last revised 2018. Albumin Creatinine Ratio, Ur <21 1 - 29 mg/g MODE HAYNES Urine 05/29/2023 2:02 PM CDT 05/29/2023 7:57 PM CDT us Radha Valencia MD LAB URINE ORDERABLES Final Resul t Performing Organization Address [facility] Co de Phone Number MODE [facility]AYN[facility] [id number] [address] [place] [employer] [place] [address] from Last 3 Months or Most Recently Relevant to Health Maintenance Insurance IDMO AET MEDICARE [facility] AETNA MEDICARE IDPA T MEDICARE Care Teams Drafter Apprentice Relationship Specialty Start Date End Date Carina Avendano MD PCP - General 07/26/20 Carina Avendano MD Family Medicine 07/26/20
--- OUTSIDE RECORDS SUMMARY | 2024-09-30 07:49 | XMS_ITS | Clinical Summary ---
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 Name Role Phone Carina Avendano MD Primary Care Provider [phone] Carina Avendano MD Unavailable [phone] Allergies No known active allergies Medications [...] microalbumin Assessment & Plan (09/21/2020 1:38 PM AERONAUTICAL INSPECTOR): Goal blood pressure is less than 140/85 [...] Atorvastatin Assessment & Plan (09/25/2021 11:57 AM AERONAUTICAL INSPECTOR): Goal of treatment , LDL cholesterol less [...] atorvastatin Assessment & Plan (09/21/2020 1:37 PM AERONAUTICAL INSPECTOR): Goal of treatment , LDL cholesterol less [...] Lipitor Assessment & Plan (08/26/2019 12:05 PM AERONAUTICAL INSPECTOR): Tolerating atorvastatin. Continue. Assessment & Plan (04/27/2019 [...] eye appt 01/24/[address] Whitlock at [facility]. Assessment & Plan (03/26/2022 1:32 PM CDT): [...] t Assessment & Plan (09/25/2021 11:58 AM AERONAUTICAL INSPECTOR): Hba1c was Lab Results Component Value Date [...] metformin Assessment & Plan (09/21/2020 1:38 PM AERONAUTICAL INSPECTOR): Hba1c was Lab Results Component Value Date [...] Metformin Assessment & Plan (08/26/2019 12:05 PM AERONAUTICAL INSPECTOR): A1c 5.4 with no hypoglycemia. Most BG [...] goal hba1c is under 7.0 to prevent termite helper diabetes complications ( eye , kidney and [...] persistently under 150 Fax sugar logs weekly Medical History Medical History Date Comments Type 2 diabetes mellitus (HCC) Family History Medical History Relation Name Comments Hypertension Father Diabetes Mother Relation Name Status Comments Father Mother Social History Tobacco Use Types Packs/Day Years [...] on file Legal Sex Female 7:50 PM AERONAUTICAL INSPECTOR Gender Identity Not on file Sexual Orientation Not on file Obstetrics History Last Filed Vital Signs Vital Sign Reading [...] 05/21/2024 1:22 PM CDT Plan of Treatment Health Maintenance Due Date Last Done Comments Breast Cancer Screening-Mammogram 1983 Cervical Cancer Screening 1983 Hepatitis C Screening 1983 DTaP/Tdap/Td Vaccine (1 - Tdap) 1994 Varicella Vaccines (1 of 2 - 13+ 2-dose series) 1996 Hepatitis B Screening 2001 Regular Well Visit/Exam 18-64 2001 Pneumococcal vaccine <65 (2 of 2 - PCV) 03/16/2020 03/16/2019 Foot Exam 10/30/2023 10/29/2022, 03/11, 04/27/2019 Influenza Vaccine (#1) 2024 9, 05/27/2018, 07/02/2014 Albumin Creatinine Ratio, Urine 05/29/2024 05/29/2023, 03/26/2022, 04/05/2021, Additional history exists eGFR 05/29/2024 05/29/2023, 03/26/2022 Lipid Panel 11/10/2024 11/11/2023, 03/2 08/2022, 09/25/2021, Additional history exists Hemoglobin A1C 11/19/2024 05/21/2024, 04/0 09/2023, 05/29/2023, Additional history exists Dilated Eye Exam 04/28/2025 04/28/2024, , 01/23/2022, Additional history exists Depression Screening 05/21/2025 05/21/2024, 05/21/2024, 03/26/2022, Additional history exists HPV Vaccines Aged Out No longer eligi ble based on patient's age to complete this topic Procedures Procedure Name Priority Date/Time Associated Diagnosis [...] on 2018. HDL 43 >=40 mg/dL MODE Comment: Interpretive Data Ages < or = [...] 2018. LDL, calculated 64 <=129 mg/dL MODE Comment: Interpretive Data Ages < or = [...] LAB BLOOD ORDERABLES Final Resul t MODE [id number] [place] [address] * eGFR (05/29/2023 2:02 PM CDT) eGFR [...] of Race in Diagnosing Kidney Disease, JASN 2020). The CKD-EPI equation should not be used for patients with unstable renal function and has not been validated in children and those over 70. Current interpretive data was last reviewed 2021. Blood 05/29/2023 2:02 PM CDT 05/29/2023 8:36 PM CDT us Radha Valencia MD LAB BLOOD ORDERABLES Final Resul t Performing Organization Address [facility] de Phone Number [facility] [id number] [place] [address] * Albumin Creatinine Ratio, Urine (05/29/2023 2:02 PM CDT) Albumin Ur <12.0 mg/L Comment: Interpretive Data No reference range established. Current interpretive data was last revised 2018. Creatinine Ur 55.9 mg/dL MODE Comment: Interpretive Data No reference range established. Current interpretive data was last revised 2018. 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
[2024-09-30 09:06] LABS: Alanine Aminotransferase 33 U/L (6-35); Albumin Level 4.5 g/dL (3.5-5.1); Alkaline Phosphatase 85 U/L (38-126); Anion Gap 12 mmol/L (4-12); Aspartate Amino Transferase 28 U/L (14-36); Bilirubin,Total 0.5 mg/dL (0.2-1.3); Blood Urea Nitrogen 13 mg/dL (7-17); Calcium 9.7 mg/dL (8.4-10.2); Carbon Dioxide 25 mmol/L (22-30); Chloride 101 mmol/L (98-107); Cholesterol 160 mg/dL (0-200); Estimated Glomerular Filt Rate > 60; Glucose 145 mg/dL (65-110); HDL Direct 51 mg/dL; Potassium 3.7 mmol/L (3.4-5.0); Sodium 138 mmol/L (137-145); Triglycerides 156 mg/dL (<150)
[2024-09-30 09:17] LABS: LDL Cholesterol Direct 81 mg/dL
[2024-09-30 11:09] LABS: Creatinine Urine 99.7 mg/dL
[2024-09-30 11:13] LABS: MALB Creatinine Ratio 8.9 mg/g (0-30); Microalbumin Urine Random 8.9 mg/L (0-16.7)
[2024-09-30 11:51] LABS: Free T4 Free Thyroxine Reflex 0.89 ng/dL (0.78-2.19)
[2024-09-30 12:59] LABS: Total Triiodothyronine (T3) 1.26 NG/ML (0.97-1.69)
== END 2024-09-30 07:47 | disposition home or self-care (01) ==
LOC: ANHLAB 07:47
PROVIDERS: PCP Family Medicine; Visit Provider Family Medicine
DX: E11.9 Type 2 diabetes mellitus without complications (principal); E78.2 Mixed hyperlipidemia; E03.9 Hypothyroidism, unspecified
CPT/HCPCS: 36415; 80053; 80061; 82043; 84439; 84443; 84480